=== PATIENT | female | born 1950 | race Caucasian/White ===

== ENCOUNTER 2024-07-30 21:27 | Emergency (ER) | payer MEDICAID ==
[~2024-07-30] VITALS: Ht 162.6 cm; Wt 39.0 kg
[2024-07-30 21:31] VITALS: BP 125/61; PULSE 78; RESP 18; O2SAT 98
[2024-07-30] MEDS ORDERED: ACET-2708 MT (23:49)
[2024-07-31] MEDS: ACETAMINOPHEN 325MG TABLET PO ONE
[2024-07-31 02:38] VITALS: TEMP 98.6
[2024-07-31] MEDS: ACETAMINOPHEN 325MG TABLET PO NR (02:38)
== END 2024-07-31 12:29 | disposition home or self-care (01) ==
LOC: ER 21:43
DX: R51.9 Headache, unspecified (principal); E11.9 Type 2 diabetes mellitus without complications; Z00.00 Encounter for general adult medical examination without abnormal findings
CPT/HCPCS: 99284

== ENCOUNTER 2024-07-31 16:03 | Emergency (ER) | payer MEDICAID ==
[~2024-07-31] VITALS: Ht 167.6 cm; Wt 59.0 kg
[~2024-07-31 16:03] MED LIST: ACET-2708 MT
[2024-07-31 16:11] VITALS: O2SAT 94
[2024-07-31 19:47] VITALS: BP 118/66; PULSE 80; RESP 17; TEMP 36.89184; O2SAT 95
== END 2024-07-31 23:27 | disposition home or self-care (01) ==
LOC: ER 16:03
DX: F03.90 Unspecified dementia, unspecified severity, without behavioral disturbance, psychotic disturbance, mood disturbance, and anxiety (principal); E11.9 Type 2 diabetes mellitus without complications; I10 Essential (primary) hypertension; F41.9 Anxiety disorder, unspecified; G43.909 Migraine, unspecified, not intractable, without status migrainosus
CPT/HCPCS: 99283